=== PATIENT | female | born 1980 | race Two or more races ===

== ENCOUNTER 2021-08-20 21:26 | Emergency (ER) | payer MEDICAID, OTHER ==
[~2021-08-20] VITALS: Ht 152.4 cm; Wt 59.9 kg
[2021-08-20 21:45] VITALS: BP 116/76
[2021-08-21 03:23] LABS: Basophils # (auto) 0.1 10 ^3/uL (0-0.2); Basophils % (auto) 0.7 % (0.0-2.0); Eosinophils # (auto) 0.2 10 ^3/uL (0-0.8); Eosinophils % (auto) 1.8 % (0.0-7.0); Hematocrit 41.4 % (36.0-46.0); Hemoglobin 13.8 g/dL (12.2-16.2); Lymphocytes # (auto) 2.2 10 ^3/uL (0.4-5.4); Lymphocytes % (auto) 25.5 % (10.0-50.0); Mean Corpuscular Hemoglobin 29.7 pg (28.0-32.0); Mean Corpuscular Hgb Conc. 33.3 g/dL (32.0-36.0); Monocytes # (auto) 0.7 10 ^3/uL (0-1.3); Monocytes % (auto) 7.7 % (0.0-12.0); Neutrophils # (auto) 5.5 10 ^3/uL (1.6-8.6); Neutrophils % (auto) 64.3 % (37.0-80.0); Red Blood Cells 4.65 10^6/uL (4.0-5.20); Red Cell Distribution Width 12.8 % (11.8-14.3); White Blood Cell 8.5 10^3/uL (4.4-10.8)
[2021-08-21 03:45] LABS: BUN/Creatinine Ratio 25.9; Calcium 9.1 mg/dL (8.5-10.1)
[2021-08-21 03:48] LABS: Bilirubin, Total 0.2 mg/dL (0.2-1.0); Total Protein 7.6 g/dL (6.4-8.2)
[2021-08-21 04:29] LABS: Urine Bacteria NONE SEEN /hpf (None Seen); Urine Blood Negative /uL (Negative); Urine Mucus FEW (None Seen); Urine Specific Gravity 1.033 (1.001-1.035); Urine WBC 24 /hpf (0 - 5)
[2021-08-21] MEDS ORDERED: CEPH-322 PO (06:34)
== END 2021-08-21 09:05 | disposition home or self-care (01) ==
LOC: EDBD 21:26 → ER 21:26
DX: S30.1XXA Contusion of abdominal wall, initial encounter (principal); N39.0 Urinary tract infection, site not specified; M54.9 Dorsalgia, unspecified; R07.81 Pleurodynia; Z79.2 Long term (current) use of antibiotics; Y04.2XXA Assault by strike against or bumped into by another person, initial encounter; Y93.89 Activity, other specified; Y92.89 Other specified places as the place of occurrence of the external cause; Y99.8 Other external cause status
CPT/HCPCS: 36415; 71045; 71111; 74176; 80053; 81001; 85025; 87086